=== PATIENT | male | born 1955 | race American Indian/Alaskan Native ===

== ENCOUNTER 2017-06-19 15:05 | Outpatient (CLI) | payer OTHER ==
--- NOTE | 2017-06-20 07:42 | XRay Report ---
RIGHT KNEE, 3 views: History: Right knee pain. Findings: There is normal bone mineralization. No evidence for fracture or bone lesion. Minimal osteoarthritic changes are identified in all 3 compartments. Small joint effusion is suspected on the lateral image. There is a small enthesophyte projecting from the superior patella measuring 9 mm. IMPRESSION: Osteoarthritic changes. Small joint effusion.
== END 2017-06-19 15:06 | disposition home or self-care (01) ==
LOC: XRAY 15:05
PROVIDERS: ATTEND Family Medicine
DX: M17.11 Unilateral primary osteoarthritis, right knee (principal)

== ENCOUNTER 2019-03-23 08:39 | Outpatient (CLI) | payer OTHER ==
--- NOTE | 2019-03-23 10:50 | XRay Report ---
RIGHT HAND 3 VIEWS INDICATION / CLINICAL INFORMATION: HAND CONTUSION. COMPARISON: None available. FINDINGS: There is cortical irregularity of the distal end of the middle phalanx and base of the proximal phala nx of the fifth finger. Appearance is most suggestive of an old, incompletely united fracture, rather than an acute fracture. Suggest clinical correlation. No acute abnormalities. Signer Name: Jaxson Hanson MD Signed: 03/23/2019 10:45 AM Workstation Name: [id number]
== END 2019-03-23 08:40 | disposition home or self-care (01) ==
LOC: XRAY 08:39
PROVIDERS: ATTEND Family Medicine
DX: S60.221A Contusion of right hand, initial encounter (principal); X58.XXXA Exposure to other specified factors, initial encounter; Y93.89 Activity, other specified; Y92.89 Other specified places as the place of occurrence of the external cause; Y99.8 Other external cause status